=== PATIENT | male | born 1965 | race Caucasian/White ===

== ENCOUNTER 2017-03-09 16:56 | Emergency (ER) | payer OTHER ==
[~2017-03-09] VITALS: Ht 185.4 cm; Wt 107.5 kg
[2017-03-09 17:45] LABS: BLOOD UREA NITROGEN 15 mg/dL (7-18)
[2017-03-09 19:20] VITALS: BP 120/70
== END 2017-03-09 19:33 | disposition home or self-care (01) ==
LOC: ED 19:30
DX: I82.812 Embolism and thrombosis of superficial veins of left lower extremity (principal)
CPT/HCPCS: 36415; 80048; 82040; 85025; 85610; 99284